=== PATIENT | female | born 1980 | race African-American/Black ===

== ENCOUNTER 2017-07-06 01:03 | Emergency (ER) | payer MEDICAID ==
[~2017-07-06] VITALS: Ht 154.9 cm; Wt 86.0 kg
[2017-07-06] MEDS ORDERED: IBUPROFEN 600MG TABLET PO ONE (03:45)
[2017-07-06 03:48] VITALS: BP 147/96
== END 2017-07-06 03:52 | disposition home or self-care (01) ==
LOC: ER 03:15
DX: S80.02XA Contusion of left knee, initial encounter (principal); S80.01XA Contusion of right knee, initial encounter; M25.571 Pain in right ankle and joints of right foot; R10.30 Lower abdominal pain, unspecified; Y92.414 Local residential or business street as the place of occurrence of the external cause; V43.52XA Car driver injured in collision with other type car in traffic accident, initial encounter; Y93.89 Activity, other specified; R03.0 Elevated blood-pressure reading, without diagnosis of hypertension
CPT/HCPCS: 99282

== ENCOUNTER 2024-01-20 22:21 | Emergency (ER) | payer MEDICAID ==
[~2024-01-20] VITALS: Ht 154.9 cm; Wt 96.6 kg
[~2024-01-20 22:21] MED LIST: AMLO10TA80 PO; DOCU-150 PO; FERR325T6 PO; HYDR-4001 PO
[2024-01-20 22:33] VITALS: O2SAT 100
[2024-01-20] MEDS ORDERED: SULF1TAB48 MT (23:35)
[2024-01-20] MEDS ORDERED: IBUP-2029 MT (23:35)
[2024-01-20 23:38] VITALS: BP 144/75; PULSE 92; RESP 16; TEMP 98.8
== END 2024-01-20 23:42 | disposition home or self-care (01) ==
LOC: ER 22:43
DX: H00.011 Hordeolum externum right upper eyelid (principal)
CPT/HCPCS: 99283

== ENCOUNTER 2025-01-25 17:33 | Inpatient (IN) | payer MEDICAID ==
[~2025-01-25] VITALS: Ht 309.9 cm; Wt 109.5 kg
[~2025-01-25 17:33] MED LIST changes: -DOCU-150 PO; +DOCU-422 PO; +IBUP-2029 MT; +SULF1TAB48 MT
[2025-01-25] MEDS: MORPHINE SULFATE 2 MG/ML INJ (NOT FOR IM USE) IV ONE (18:24)
[2025-01-25] MEDS: ONDANSETRON HCL 4MG/2ML INJ IV NR (18:24)
[2025-01-25 18:38] LABS: BASOPHILS % 0.6 % (0.0-2.0); EOSINOPHILS % 1.5 % (0.0-5.0); LYMPHOCYTES % 24.1 % (20.0-50.0); MEAN CORPUSCULAR HEMOGLOBIN 17.5 pg (28.0-32.0); MEAN CORPUSCULAR HGB CONC 29.6 g/dL (31.0-37.0); MEAN CORPUSCULAR VOLUME 59.1 fL (81.0-99.0); MEAN PLATELET VOLUME 8.8 fl (7.4-10.4); MONOCYTES % 6.1 % (2.0-8.0); NEUTROPHILS % 67.7 % (40.0-76.0); PLATELET 280 x1000/uL (130-400); RED BLOOD CELL COUNT 3.97 mill/uL (4.2-5.4); WHITE BLOOD COUNT 7.8 x1000/uL (4.5-11.0)
[2025-01-25 18:41] LABS: CHLORIDE 107 mEq/L (98-107); POTASSIUM 3.5 mEq/L (3.5-5.1); SODIUM 143 mEq/L (136-145)
[2025-01-25 18:42] LABS: CALCIUM 8.7 mg/dL (8.7-10.4); CARBON DIOXIDE 25 mEq/L (21-32); DIFFERENTIAL COMMENT 1
[2025-01-25 18:47] LABS: CREATININE 0.7 mg/dL (0.6-1.0); GLUCOSE 95 mg/dL (70-105); HEMATOCRIT. 23.5 % (36.0-48.0); HEMOGLOBIN. 6.9 g/dL (12.0-16.0); UREA NITROGEN BLOOD 6 mg/dL (9-23)
[2025-01-25 18:49] LABS: ADD RBC MORPHOLOGY YES; ALANINE AMINOTRANSFERASE 9 IU/L (10-49); ALBUMIN 4.1 g/dL (3.2-4.8); ASPARTATE AMINOTRANSFERASE 14 IU/L (<34); BILIRUBIN DIRECT 0.1 mg/dL (<=3.0); BILIRUBIN TOTAL 0.5 mg/dL (0.1-1.0); PROTEIN TOTAL 7.4 g/dL (6.0-8.3); TROPONIN I HIGH SENSITIVITY < 4 ng/L (3.0-34)
[2025-01-25 18:53] LABS: HCG SCREEN NEGATIVE
[2025-01-25 19:02] LABS: PARTIAL THROMBOPLASTIN TIME 26.2 sec (23.4-31.0)
[2025-01-25 19:14] LABS: PLATELET ESTIMATE NORMAL
[2025-01-25 19:15] LABS: HYPOCHROMASIA 2+; MICROCYTOSIS 3+
[2025-01-25] MEDS: MORPHINE SULFATE 4 MG/ML INJ (FOR IV/IM USE) IV NR (19:22)
[2025-01-25 22:25] VITALS: BP 128/74; PULSE 92; RESP 16; TEMP 37.5
[2025-01-25] MEDS ORDERED: GUAIFENESIN 200MG/10ML SUGAR FREE UDC PO PRN (22:30)
[2025-01-25] MEDS ORDERED: IPRATROPIUM/ALBUTEROL 0.5-3(2.5)MG/3ML NEB HHN PRN (22:30)
[2025-01-25] MEDS ORDERED: LORAZEPAM 0.5MG TABLET PO PRN (22:30)
[2025-01-25] MEDS ORDERED: ONDANSETRON HCL 4MG/2ML INJ IV PRN (22:30)
[2025-01-25] MEDS ORDERED: ACETAMINOPHEN 325MG TABLET PO PRN ×2 (22:30)
[2025-01-25] MEDS ORDERED: DEXTROSE 50% WATER 50ML SYRINGE IV PRN (22:45)
[2025-01-25 23:00] VITALS: BP 124/74; PULSE 92; RESP 16; TEMP 37.503
[2025-01-25 23:11] VITALS: BP 126/78; PULSE 75; RESP 16; TEMP 37.503
[2025-01-25] MEDS ORDERED: IOHEXOL-350 100 ML BOTTLE ONE (23:11)
[2025-01-25] MEDS: PANTOPRAZOLE 40MG DR TABLET PO SCH (23:20)
[2025-01-25] MEDS: HYDROCODONE/ACETAMINOPHEN 7.5/325MG TABLET PO PRN (23:28)
[2025-01-25 23:30] VITALS: BP 145/51; PULSE 85; RESP 18; TEMP 36.50292
[2025-01-25] MEDS ORDERED: CEFTRIAXONE 1,000 MG in DEXT 5% WATER 100 ML IV SCH (23:30)
[2025-01-26] VITALS (8 sets, daily range): BP systolic 112–160; BP diastolic 58–82; PULSE 77–99; RESP 16–18; TEMP 36.6–37.5; O2SAT 97–100
[2025-01-26 04:08] LABS: BASOPHILS % 0.3 % (0.0-2.0); HEMATOCRIT. 28.2 % (36.0-48.0); HEMOGLOBIN. 8.3 g/dL (12.0-16.0); LYMPHOCYTES % 20.6 % (20.0-50.0); MEAN CORPUSCULAR HEMOGLOBIN 18.3 pg (28.0-32.0); MEAN CORPUSCULAR HGB CONC 29.3 g/dL (31.0-37.0); MEAN CORPUSCULAR VOLUME 62.2 fL (81.0-99.0); MEAN PLATELET VOLUME 8.7 fl (7.4-10.4); NEUTROPHILS % 71.1 % (40.0-76.0); PLATELET 280 x1000/uL (130-400); RED BLOOD CELL COUNT 4.53 mill/uL (4.2-5.4); WHITE BLOOD COUNT 10.1 x1000/uL (4.5-11.0)
[2025-01-26 04:12] LABS: CHLORIDE 107 mEq/L (98-107); POTASSIUM 3.2 mEq/L (3.5-5.1); SODIUM 142 mEq/L (136-145)
[2025-01-26 04:13] LABS: CALCIUM 8.7 mg/dL (8.7-10.4); CARBON DIOXIDE 26 mEq/L (21-32)
[2025-01-26 04:15] LABS: DIFFERENTIAL COMMENT 1
[2025-01-26 04:18] LABS: CREATININE 0.8 mg/dL (0.6-1.0); GLUCOSE 120 mg/dL (70-105)
[2025-01-26 04:19] LABS: LDL CHOLESTEROL 67 mg/dL (5-100); TRIGLYCERIDE 68 mg/dL (0-150); UREA NITROGEN BLOOD 6 mg/dL (9-23)
[2025-01-26 04:20] LABS: ALANINE AMINOTRANSFERASE 8 IU/L (10-49); ALBUMIN 4.1 g/dL (3.2-4.8); ASPARTATE AMINOTRANSFERASE 12 IU/L (<34); CHOLESTEROL 127 mg/dL (<200)
[2025-01-26 04:21] LABS: BILIRUBIN DIRECT 0.2 mg/dL (<=3.0); BILIRUBIN TOTAL 0.6 mg/dL (0.1-1.0); HDL CHOLESTEROL 44 mg/dL (>65); PROTEIN TOTAL 7.5 g/dL (6.0-8.3)
[2025-01-26 04:23] LABS: THYROID STIMULATING HORMONE 6.84 uIU/mL (0.55-4.78)
[2025-01-26 05:04] LABS: ERYTHROCYTE SEDIMENTATION RATE 48 mm/hr (0-20)
[2025-01-26] MEDS: DEXT 5%/0.9% NACL 1,000 ML IV SCH (05:25)
[2025-01-26] MEDS: FERROUS SULFATE 325MG TABLET PO SCH (08:10)
[2025-01-26] MEDS: AMLODIPINE 10MG TABLET PO SCH (08:10)
[2025-01-26] MEDS: POTASSIUM CHLORIDE 20MEQ TABLET SR PO NR (10:05)
[2025-01-26 10:17] LABS: CLARITY URINE CLOUDY (CLEAR); COLOR URINE ORANGE (YELLOW); GLUCOSE URINE NEGATIVE (NEGATIVE); KETONES URINE NEGATIVE (NEGATIVE); LEUKOCYTE ESTERASE URINE TRACE (NEGATIVE); NITRITE URINE NEGATIVE (NEGATIVE); OCCULT BLOOD URINE 3+ (NEGATIVE); PH URINE 5.5 (4.5-8.0); PROTEIN URINE 1+ (NEGATIVE); SPECIFIC GRAVITY URINE 1.055 (1.005-1.030)
[2025-01-26 11:06] LABS: BACTERIA URINE TRACE; RBC URINE TNTC /hpf (0-2); SQUAMOUS EPITHELIAL CELL URINE RARE /lpf (RARE/1+)
[2025-01-26 11:07] LABS: WBC URINE 0-2 /hpf (0-2)
[2025-01-26] MEDS: KETOROLAC 15MG/ML VIAL IV NR (12:42)
[2025-01-26] MEDS: MORPHINE SULFATE 2 MG/ML INJ (NOT FOR IM USE) IV PRN (16:52)
[2025-01-26] MEDS: CLONIDINE 0.1MG TABLET PO PRN (21:17)
[2025-01-26] MEDS: CEFTRIAXONE 1GM/50ML 50 ML IV SCH (21:18)
[2025-01-26 22:39] LABS: IRON 26 ug/dL (50-170)
[2025-01-26 22:42] LABS: TOTAL IRON BINDING CAPACITY 479 ug/dl (250-425)
[2025-01-27] VITALS: BP 129/68; PULSE 88; RESP 18; TEMP 36.8; O2SAT 99
[2025-01-27 04:00] VITALS: BP 126/59; PULSE 85; RESP 19; TEMP 36.6; O2SAT 100
[2025-01-27 08:00] VITALS: BP 116/49; PULSE 85; RESP 20; TEMP 37; O2SAT 99
[2025-01-27] MEDS: KETOROLAC 15MG/ML VIAL IV PRN (10:48)
[2025-01-27 12:00] VITALS: BP 132/61; PULSE 84; RESP 20; TEMP 37.3; O2SAT 100
[2025-01-27 12:06] LABS: BASOPHILS % 0.4 % (0.0-2.0); EOSINOPHILS % 1.8 % (0.0-5.0); LYMPHOCYTES % 15.8 % (20.0-50.0); MEAN CORPUSCULAR HGB CONC 29.9 g/dL (31.0-37.0); MEAN CORPUSCULAR VOLUME 63.5 fL (81.0-99.0); MEAN PLATELET VOLUME 8.9 fl (7.4-10.4); MONOCYTES % 7.1 % (2.0-8.0); NEUTROPHILS % 74.9 % (40.0-76.0); PLATELET 258 x1000/uL (130-400); RED BLOOD CELL COUNT 3.67 mill/uL (4.2-5.4); RED CELL DISTRIBUTION WIDTH 23.8 % (11.6-14.6); WHITE BLOOD COUNT 8.6 x1000/uL (4.5-11.0)
[2025-01-27 12:17] LABS: CARBON DIOXIDE 25 mEq/L (21-32); CHLORIDE 108 mEq/L (98-107); POTASSIUM 3.2 mEq/L (3.5-5.1); SODIUM 143 mEq/L (136-145)
[2025-01-27 12:18] LABS: CALCIUM 8.5 mg/dL (8.7-10.4)
[2025-01-27 12:23] LABS: CREATININE 0.6 mg/dL (0.6-1.0); GLUCOSE 114 mg/dL (70-105)
[2025-01-27 12:25] LABS: UREA NITROGEN BLOOD < 5 mg/dL (9-23)
[2025-01-27 12:36] LABS: DIFFERENTIAL COMMENT 1
[2025-01-27 12:37] LABS: HEMATOCRIT. 23.3 % (36.0-48.0)
[2025-01-27 12:38] LABS: ADD RBC MORPHOLOGY YES
[2025-01-27] MEDS ORDERED: NALOXONE HCL 0.4MG/ML VIAL IV PRN (13:15)
[2025-01-27] MEDS: POTASSIUM CHLORIDE 20MEQ/PACKET PO NR (13:37)
[2025-01-27 14:17] LABS: ANISOCYTOSIS 3+; HYPOCHROMASIA 1+; MICROCYTOSIS 4+; OVALOCYTES 1+; PLATELET ESTIMATE NORMAL
[2025-01-27 16:00] VITALS: BP 131/57; PULSE 83; RESP 20; TEMP 36.6; O2SAT 98
[2025-01-27 18:48] LABS: BASOPHILS % 0.5 % (0.0-2.0); EOSINOPHILS % 1.7 % (0.0-5.0); HEMATOCRIT. 24.5 % (36.0-48.0); HEMOGLOBIN. 7.4 g/dL (12.0-16.0); MEAN CORPUSCULAR HGB CONC 30.3 g/dL (31.0-37.0); MEAN CORPUSCULAR VOLUME 62.7 fL (81.0-99.0); MEAN PLATELET VOLUME 8.6 fl (7.4-10.4); MONOCYTES % 6.1 % (2.0-8.0); NEUTROPHILS % 69.7 % (40.0-76.0); PLATELET 292 x1000/uL (130-400); RED CELL DISTRIBUTION WIDTH 24.2 % (11.6-14.6)
[2025-01-27 18:59] LABS: DIFFERENTIAL COMMENT 1
[2025-01-28 00:05] VITALS: BP 151/60; PULSE 94; RESP 18; TEMP 36.7; O2SAT 97
[2025-01-28 08:00] VITALS: BP 130/63; PULSE 94; RESP 18; TEMP 36.7; O2SAT 100
[2025-01-28 09:44] VITALS: BP 130/63; PULSE 94; TEMP 98.1; O2SAT 100
[2025-01-28] MEDS ORDERED: IBUP-2029 MT (11:48)
[2025-01-28] MEDS ORDERED: FERR325T6 PO (11:48)
[2025-01-28] MEDS ORDERED: AMLO10TA80 PO (11:48)
[2025-01-28] MEDS ORDERED: PANT40TA51 PO (11:48)
[2025-01-28 12:00] VITALS: BP 122/60; PULSE 90; RESP 20; TEMP 36.8; O2SAT 99
[2025-01-28 13:31] VITALS: BP 122/60; PULSE 90; RESP 20
== END 2025-01-28 15:10 | disposition home or self-care (01) | DRG 663 ==
LOC: ER 17:33 → EDBEDREQ 18:58 → 7EST 21:57 → EDBEDREQ 22:00 → EDBEDREQTM 22:00 → 8WST 01-26 03:11
PROVIDERS: ADMIT Internal Medicine; ATTEND Internal Medicine
PROC: 30233N1 Transfusion of Nonautologous Red Blood Cells into Peripheral Vein, Percutaneous Approach (ICD-10-PCS; principal; 2025-01-25)
DX: D62 Acute posthemorrhagic anemia (principal); K65.9 Peritonitis, unspecified; M79.3 Panniculitis, unspecified; K43.6 Other and unspecified ventral hernia with obstruction, without gangrene; D25.9 Leiomyoma of uterus, unspecified; E66.01 Morbid (severe) obesity due to excess calories; I10 Essential (primary) hypertension; N92.0 Excessive and frequent menstruation with regular cycle; Z79.899 Other long term (current) drug therapy; Z68.41 Body mass index [BMI] 40.0-44.9, adult
CPT/HCPCS: 36415; 74177; 80048; 80061; 80076; 81003; 82728; 82962; 83036; 83540; 83550; 83605; 83735; 84145; 84439; 84443; 84484; 84703; 85025; 85044; 85651; 86038; 86850; 86900; 86920; 93005; 99291; J0696; J1885; J2270; J2405; J7042; J7060; P9016; Q9967